=== PATIENT | female | born 1995 | race Caucasian/White ===

== ENCOUNTER 2021-02-06 19:00 | Emergency (ER) | payer OTHER ==
[~2021-02-06 19:00] MED LIST: COLACE100 MG PO; FERROUS SULFAT325 M2 PO; MOTRIN600 MG PO; PRENATAL TABLE1 EAC1 PO
[2021-02-06] MEDS ORDERED: AUGMENTIN 875-1 EACH PO (20:18)
== END 2021-02-06 20:22 | disposition home or self-care (01) ==
LOC: FER 19:00
DX: T81.89XA Other complications of procedures, not elsewhere classified, initial encounter (principal); F17.200 Nicotine dependence, unspecified, uncomplicated; X58.XXXA Exposure to other specified factors, initial encounter
CPT/HCPCS: 99282